=== PATIENT | male | born 1985 | race African-American/Black ===

== ENCOUNTER 2022-10-19 11:40 | Emergency (ER) | payer MEDICAID ==
[~2022-10-19] VITALS: Ht 188 cm; Wt 115.0 kg
[2022-10-19 11:46] VITALS: BP 136/81
[2022-10-19 13:28] LABS: EOSINOPHILS % 1.2 % (0.0-5.0); HEMATOCRIT. 39.4 % (42.0-52.0); HEMOGLOBIN. 13.1 g/dL (14.0-18.0); MEAN CORPUSCULAR HEMOGLOBIN 28.9 pg (28.0-32.0); MEAN CORPUSCULAR VOLUME 86.5 fL (80.0-94.0); MEAN PLATELET VOLUME 8.5 fl (7.4-10.4); MONOCYTES % 9.9 % (2.0-8.0); NEUTROPHILS % 48.9 % (40.0-76.0); PLATELET 217 x1000/uL (130-400); RED BLOOD CELL COUNT 4.55 mill/uL (4.7-6.1); RED CELL DISTRIBUTION WIDTH 14.9 % (11.6-14.6)
[2022-10-19 13:35] LABS: CHLORIDE 105 mEq/L (98-107)
[2022-10-19 13:48] LABS: ETHANOL BLOOD < 10 mg/dL
== END 2022-10-19 13:51 | disposition home or self-care (01) ==
LOC: ER 11:52
DX: F33.9 Major depressive disorder, recurrent, unspecified (principal); R45.851 Suicidal ideations; F14.90 Cocaine use, unspecified, uncomplicated; Z59.00 Homelessness unspecified; D72.819 Decreased white blood cell count, unspecified
CPT/HCPCS: 36415; 80053; 80307; 80320; 80329; 85025; 99283; G0480